=== PATIENT | female | born 1980 | race Caucasian/White ===

== ENCOUNTER 2022-02-02 20:28 | Observation (INO) | payer OTHER ==
[~2022-02-02] VITALS: Ht 154.9 cm; Wt 68.0 kg
[2022-02-02 23:31] LABS: HEMOGLOBIN 14.1 gm/dl (12.3-15.3); RED BLOOD COUNT 4.81 M/UL (4.00-5.10)
[2022-02-02 23:54] LABS: BUN/CREATININE RATIO 21 (0-10)
[2022-02-03] MEDS ORDERED: LISINOPRIL40 MG PO (11:50)
[2022-02-03] MEDS ORDERED: METFORMIN HCL500 M2 PO (11:51)
[2022-02-03] MEDS ORDERED: GLIPIZIDE10 MG PO (11:51)
[2022-02-03] MEDS ORDERED: ASPIRIN EC81 MG PO (11:51)
[2022-02-04 06:26] LABS: HEMOGLOBIN 13.7 gm/dl (12.3-15.3); RED BLOOD COUNT 4.74 M/UL (4.00-5.10); WHITE BLOOD COUNT 10.2 K/UL (4.5-11.0)
[2022-02-04 06:51] LABS: BUN/CREATININE RATIO 20 (0-10)
[2022-02-05 05:14] LABS: BUN/CREATININE RATIO 21 (0-10)
[2022-02-05] MEDS ORDERED: ATORVASTATIN CA20 MG PO (12:40)
== END 2022-02-05 15:30 | disposition home or self-care (01) ==
LOC: ER1 20:28 → MED SURG 4 02-03 05:41 → CDU 02-03 05:41 → MED SURG 4 02-03 05:41
PROVIDERS: Physician Assistant; ADMIT Internal Medicine
DX: R78.81 Bacteremia (principal); B95.8 Unspecified staphylococcus as the cause of diseases classified elsewhere; B96.89 Other specified bacterial agents as the cause of diseases classified elsewhere; I69.354 Hemiplegia and hemiparesis following cerebral infarction affecting left non-dominant side; E11.65 Type 2 diabetes mellitus with hyperglycemia; I10 Essential (primary) hypertension; E87.2 Acidosis; E78.5 Hyperlipidemia, unspecified; K21.9 Gastro-esophageal reflux disease without esophagitis; M21.379 Foot drop, unspecified foot; E86.0 Dehydration; F32.A Depression, unspecified; Z88.2 Allergy status to sulfonamides; Z88.1 Allergy status to other antibiotic agents; Z79.82 Long term (current) use of aspirin; Z79.84 Long term (current) use of oral hypoglycemic drugs; Z79.899 Other long term (current) drug therapy
CPT/HCPCS: 36415; 71045; 72129; 72132; 80048; 80053; 80202; 81001; 83605; 85025; 85652; 86140; 87040; 96361; 96365; 96366; 96372; 96376; 99285; G0378; J1650; J3370; J7030; J7050; J7070; Q9967